=== PATIENT | female | born 1980 | race Hispanic/Latino ===

== ENCOUNTER 2024-01-06 05:30 | Inpatient (IN) | payer MEDICAID, OTHER ==
[2024-01-06] MEDS ORDERED: Diphenoxylate HCl/Atropine Tablet PO PRN ×2 (06:04)
[2024-01-06] MEDS ORDERED: Misoprostol 200 MCG TAB PR PRN (06:04)
[2024-01-06] MEDS ORDERED: Acetaminophen 500 MG TAB PO PRN (06:04)
[2024-01-06] MEDS ORDERED: HYDROcodone/Acetaminophen 5/325 mg Tablet PO PRN ×2 (06:04)
[2024-01-06] MEDS ORDERED: Carboprost 250 MCG/ML AMP IM PRN (06:04)
[2024-01-06] MEDS ORDERED: Docusate 100 MG CAP PO PRN (06:04)
[2024-01-06] MEDS ORDERED: Lidocaine 1% (PF) 30 ML VIAL SC PRN (06:04)
[2024-01-06] MEDS ORDERED: fentaNYL 50 mcg/mL 1 mL Vial SLOW IVP PRN (06:04)
[2024-01-06] MEDS ORDERED: Oxytocin 30 units/NS 500 ML 500 ML IV SCH ×3 (06:04→22:21)
[2024-01-06] MEDS ORDERED: Ibuprofen 800 MG TAB PO PRN (06:04)
[2024-01-06] MEDS ORDERED: Ondansetron PF 4 MG/2 ML Vial IVP PRN ×2 (06:04→22:21)
[2024-01-06] MEDS ORDERED: hydrALAZINE 20 MG/ML VIAL SLOW IVP PRN ×2 (06:04→22:21)
[2024-01-06] MEDS ORDERED: Promethazine HCl 25 MG/ML VIAL IM PRN ×2 (06:04→22:21)
[2024-01-06] MEDS: Lactated Ringer's 1,000 ML IV SCH (06:40)
[2024-01-06 06:46] VITALS: BMI 24.4
[2024-01-06 06:49] LABS: Hematocrit 34.3 % (34.9-44.5); Hemoglobin 12.1 g/dL (12.0-15.5); Mean Corpuscular HGB CONC 35.3 g/dL (32.0-36.0); Mean Corpuscular Hemoglobin 33.6 pg (27.0-33.0); Mean Corpuscular Volume 95.3 fL (81.6-98.3); Mean Platelet Volume 10.5 fL (7.4-10.4); Platelet Count 146 10x3/uL (150-450); RBC Distribution Width 13.2 % (11.5-14.5); White Blood Cell (WBC) Count 8.3 10x3/uL (3.5-10.5)
[2024-01-06 07:15] LABS: HBsAg Index 0.23 S/CO (0-0.99); Hep B Surf Ag - L&D Non-Reactive S/CO (NonReactive)
[2024-01-06 07:16] LABS: Syphilis Antibody Nonreactive (Nonreactive); Syphilis Antibody Index 0.03 S/CO (<1.00 Non-Reactive)
[2024-01-06] MEDS: Oxytocin 30 units/NS 500 ML 500 ML IV SCH (07:42)
[2024-01-06] MEDS: Misoprostol 100 MCG TAB VAG SCH (07:42)
[2024-01-06] MEDS ORDERED: diphenhydrAMINE 25 MG CAP PO PRN (22:21)
[2024-01-06] MEDS ORDERED: Preparation H Ointment 28 GM TUBE PR PRN (22:21)
[2024-01-06] MEDS ORDERED: Lanolin Ointment 7 GM TUBE TOP PRN (22:21)
[2024-01-06] MEDS ORDERED: Milk Of Magnesia 30 ML UDCUP PO PRN (22:21)
[2024-01-06] MEDS ORDERED: Misoprostol 200 MCG TAB VAG PRN (22:21)
[2024-01-06] MEDS ORDERED: Boostrix 0.5 ML (Tdap) VIAL (>/=7 yrs of age) IM ONE (22:21)
[2024-01-06] MEDS ORDERED: Bisacodyl 10 MG SUPP PR PRN (22:21)
[2024-01-06] MEDS ORDERED: Benzocaine-Menthol 82.5 ML CAN TOP PRN (22:21)
[2024-01-06] MEDS ORDERED: Glucagon 1 MG/ML KIT IM PRN (23:19)
[2024-01-06] MEDS ORDERED: Dextrose 50% Abboject 50 ML SYRINGE SLOW IVP PRN (23:19)
[2024-01-06] MEDS ORDERED: Dextrose 5% in Water 1,000 ML IV PRN (23:19)
[2024-01-06] MEDS: Insulin Lispro 100 UNIT/ML 10 ML VIAL SC PRN (23:30)
[2024-01-06] MEDS: Docusate 100 MG CAP PO SCH (23:30)
[2024-01-06] MEDS: Ibuprofen 800 MG TAB PO SCH (23:30)
[2024-01-07] MEDS: Ibuprofen 800 MG TAB PO SCH (06:28)
[2024-01-07] MEDS: Ferrous Sulfate 325 MG TAB PO SCH (07:30)
[2024-01-07] MEDS: metFORMIN 500 MG TAB PO SCH (09:24)
[2024-01-07] MEDS: Prenatal Vitamin 1 TAB PO SCH (09:24)
[2024-01-07] MEDS: Docusate 100 MG CAP PO SCH (09:24)
[2024-01-07] MEDS: Insulin Lispro 100 UNIT/ML 10 ML VIAL SC PRN (16:31)
[2024-01-08 07:56] VITALS: BP 115/75; TEMP 97.5
== END 2024-01-08 12:50 | disposition home or self-care (01) | DRG 807 ==
LOC: CSHLD 05:41 → CSHPED 22:20
PROVIDERS: ADMIT Family Medicine; ATTEND Family Medicine
PROC: 10E0XZZ Delivery of Products of Conception, External Approach (ICD-10-PCS; principal; 2024-01-06)
DX: O24.424 Gestational diabetes mellitus in childbirth, insulin controlled (principal); Z37.0 Single live birth; Z3A.38 38 weeks gestation of pregnancy; E78.5 Hyperlipidemia, unspecified; O99.284 Endocrine, nutritional and metabolic diseases complicating childbirth; O16.4 Unspecified maternal hypertension, complicating childbirth
CPT/HCPCS: 36415; 36416; 85027; 86780; 86850; 86900; 86901; 87340; J2590; J7120